=== PATIENT | female | born 1965 | race Caucasian/White ===

== ENCOUNTER → 2016-07-03 | Outpatient (CLI) | payer BC ==
--- NOTE | 2016-07-03 12:05 | MR ---
EXAMINATION TYPE: MR hip LT wo con DATE OF EXAM: 07/03/2016 11:41 AM COMPARISON: NONE HISTORY: Pain in left hip Standard multiplanar, multisequence MRI departmental protocol Multiplanar, multisequence images of the left hip were acquired. FINDINGS: There is a moderate degenerative narrowing at the left hip joint space. There is attenuation of the s ubarticular cartilage compatible with osteoarthritis. Superior labrum appears to be torn. Remaining l abrum is grossly intact. There is no evidence for avascular necrosis. No fracture or bony lesion is s een. No sizable joint effusion. No evidence for femoral acetabular impingement. Mild to moderate dege nerative narrowing is noted of the right hip joint space. Kwan balloon catheter seen within the urin celeste bladder. No soft tissue masses are present. IMPRESSION: Osteoarthritis of the left hip with suspected labral tear.
== END | disposition home or self-care (01) ==
LOC: RADMRIMAIN 10:12
PROVIDERS: ATTEND Family Medicine
DX: M16.12 Unilateral primary osteoarthritis, left hip (principal)

== ENCOUNTER → 2016-10-29 | Outpatient (CLI) | payer BC ==
--- NOTE | 2016-10-30 10:50 | MM ---
Reason for exam: screening (asymptomatic). Last mammogram was performed 4 years and 8 months ago. History: Patient is postmenopausal. Took hormonal contraceptives for 3 years beginning at age 23. Taking progesterone for 3 years. Physical Findings: A clinical breast exam by your physician is recommended on an annual basis and results should be correlated with mammographic findings. MG Screening Mammo w CAD Bilateral CC and MLO view(s) were taken. Prior study comparison: March 01, 2012, bilateral digital screening mammo w/CAD. There are scattered fibroglandular densities. No significant changes when compared with prior studies. ASSESSMENT: Benign, BI-RAD 2 RECOMMENDATION: Routine screening mammogram of both breasts in 1 year.
== END | disposition home or self-care (01) ==
LOC: RADMAMWWP 13:09
PROVIDERS: ATTEND Obstetrics & Gynecology
DX: Z12.31 Encounter for screening mammogram for malignant neoplasm of breast (principal)

== ENCOUNTER → 2017-02-23 | Outpatient (CLI) | payer BC ==
--- NOTE | 2017-02-23 11:39 | MR ---
EXAMINATION TYPE: MR knee LT wo con DATE OF EXAM: 02/23/2017 COMPARISON: NONE HISTORY: pain in lt knee TECHNIQUE: Multiplanar, multisequence imaging of the left knee is performed without IV contrast. FINDINGS: MEDIAL MENISCUS: There is signal within the posterior horn of the medial meniscus most typical of a a kareem of myxoid degeneration. No definite meniscal tear. LATERAL MENISCUS: Anterior and posterior horns are intact without tear. CRUCIATE LIGAMENTS: The anterior and posterior cruciate ligaments are intact and unremarkable. COLLATERAL LIGAMENTS: The medial collateral ligament and lateral collateral ligament complex are inta ct and unremarkable. EXTENSOR MECHANISM: Abnormal signal is noted within the patellar tendon compatible with patellar tend initis. Correlate clinically. EFFUSION: Small amount of fluid in the suprapatellar bursa. POPLITEAL CYST: No popliteal/barrientos cyst. TRICOMPARTMENT SPACES: Mild joint space narrowing with no erosive change. There is cartilage loss of the medial femoral articular cartilage compatible with chondromalacia. BONE MARROW SIGNAL: No focal abnormal marrow signal is appreciated. OTHER: There is a degree of muscular atrophy. IMPRESSION: 1. Stable signal within the posterior horn medial meniscus. Mucoid degeneration favored over subtle t ear. 2. Abnormal signal within the patellar tendon suggestive of patellar tendinitis. Intrasubstance tear not excluded. 3. Chondromalacia medial femoral articular cartilage.
== END | disposition home or self-care (01) ==
LOC: RADMRIMAIN 09:41
PROVIDERS: ATTEND Orthopaedic Surgery Sports Medicine
DX: S83.242A Other tear of medial meniscus, current injury, left knee, initial encounter (principal); M94.262 Chondromalacia, left knee

== ENCOUNTER → 2017-02-23 | Outpatient (CLI) | payer BC ==
--- NOTE | 2017-02-23 11:41 | MR ---
EXAMINATION TYPE: MR lumbar spine wo con DATE OF EXAM: 02/23/2017 COMPARISON: NONE HISTORY: low back pain TECHNIQUE: T1 and T2 axial and sagittal images of the lumbar spine are submitted. FINDINGS: There is no abnormal signal seen within the visualized spinal cord or paraspinal soft tissu es. Scoliosis of the spine noted. At L1-2 there is hypertrophic change of the facets with no disc herniation or canal stenosis. No fora meet encroachment. At L2-3 there is hypertrophic change of the facets but no disc herniation or canal stenosis. No jia inal encroachment. Vertebral body hemangioma of L2. At L3-4 there is moderate degenerative disc disease with facet arthropathy and ligamentum flavum hype rtrophy. Circumferential disc bulging greater paracentrally to the right noted. There is mild right-s ided foraminal encroachment. At L4-5 there is moderate degenerative disc disease with diffuse disc bulging and marked facet arthro ramiro with ligamentum flavum hypertrophy. Borderline canal stenosis with mild bilateral foraminal enc roachment greater on the right. At L5-S1 there is marked facet arthropathy but no disc herniation or canal stenosis. No foraminal enc roachment. IMPRESSION: 1. Scoliosis with multilevel degenerative disc disease. Disc bulging L3-4 and L4-5 with foraminal enc roachment as discussed above.
== END | disposition home or self-care (01) ==
LOC: RADMRIMAIN 09:35
PROVIDERS: ATTEND Family Medicine
DX: M51.26 Other intervertebral disc displacement, lumbar region (principal); M51.36 Other intervertebral disc degeneration, lumbar region; M41.9 Scoliosis, unspecified; M25.569 Pain in unspecified knee
CPT/HCPCS: 72148

== ENCOUNTER → 2018-01-04 | Outpatient (CLI) | payer MEDICARE ==
--- NOTE | 2018-01-04 15:37 | US ---
EXAMINATION TYPE: US kidneys/renal and bladder DATE OF EXAM: 01/04/2018 COMPARISON: CLINICAL HISTORY: N39.0 Urinary tract infection. Hx of recurrent UTI's, Suprapubic catheter, Scanned in Go Chair EXAM MEASUREMENTS: Right Kidney: 9.6 x 5.0 x 4.3 cm Left Kidney: 9.5 x 4.1 x 3.6 cm Right Kidney: No hydronephrosis or masses seen Left Kidney: No hydronephrosis or masses seen Bladder: Catheter seen Bilateral Jets seen: Not visualized due to catheter There is no evidence for hydronephrosis at this point in time. No nephrolithiasis is seen. No jl s are identified. The urinary bladder is anechoic. Bilateral ureteral jets are seen. IMPRESSION: No significant abnormality seen.
== END | disposition home or self-care (01) ==
LOC: RADUSWWP 14:57
PROVIDERS: ATTEND Urology
DX: N39.0 Urinary tract infection, site not specified (principal)
CPT/HCPCS: 76770

== ENCOUNTER → 2018-09-22 | Outpatient (CLI) | payer MEDICARE ==
--- NOTE | 2018-09-22 13:51 | MR ---
EXAMINATION TYPE: MR lumbar spine wo con DATE OF EXAM: 09/22/2018 COMPARISON: 02/23/2017 HISTORY: lumbar spondylosis TECHNIQUE: Multiplanar, multisequence images of the lumbar spine were acquired. FINDINGS: There is a levoscoliosis of the lumbar spine, slightly rotatory. There are Modic type II en dplate changes of L3 and L4 with T1/T2 hyperintense vertebral body hemangioma of L2. Modic type II en dplate changes are also seen of the anterior endplates at L4-L5. Conus medullaris appears to terminat e at L1-L2. Multilevel disc desiccation is seen. Multilevel Schmorl's nodes are also noted. L1-L2: Disc desiccation without spinal canal stenosis or neural foraminal narrowing. L2-L3: Slightly left eccentric broad-based disc bulge creating minimal left neural foraminal narrowin g. Right neural foramen and spinal canal are patent. L3-L4: Facet arthropathy and right eccentric broad-based disc bulge are seen creating mild right neur al foraminal narrowing. Left neural foramen and spinal canal are patent. Ligamentum flavum buckling i s also noted. L4-L5: There is facet arthropathy and ligamentum flavum buckling as well as a left eccentric broad-ba sed disc bulge creating moderate to severe left neural foraminal narrowing and mild right neural fora meet narrowing as well as mild spinal canal stenosis. L5-S1: Disc desiccation is present without spinal canal stenosis nor neural foraminal narrowing. IMPRESSION: 1. Mild spinal canal stenosis at L4-L5 and moderate to severe left neural foraminal narrowing with im pingement of the exiting L4 nerve root secondary to a left eccentric disc bulge, facet arthropathy an d ligamentum flavum buckling. 2. Degenerative disc disease throughout the remainder of the lumbar spine without focal herniation. M inimal left neural foraminal narrowing at L2-L3 and mild right neural foraminal narrowing at L4-L5 ar e seen as a result. 3. Levoscoliosis of the lumbar spine is minimally rotatory.
== END | disposition home or self-care (01) ==
LOC: RADMRIMAIN 12:30
PROVIDERS: ATTEND Neurological Surgery
DX: M99.73 Connective tissue and disc stenosis of intervertebral foramina of lumbar region (principal); M48.061 Spinal stenosis, lumbar region without neurogenic claudication; M48.07 Spinal stenosis, lumbosacral region; M51.86 Other intervertebral disc disorders, lumbar region; M51.36 Other intervertebral disc degeneration, lumbar region; M46.96 Unspecified inflammatory spondylopathy, lumbar region; M41.86 Other forms of scoliosis, lumbar region
CPT/HCPCS: 72148

== ENCOUNTER → 2018-10-15 | Outpatient (CLI) | payer MEDICARE ==
--- NOTE | 2018-10-19 11:14 | MM ---
Reason for exam: screening (asymptomatic). Last mammogram was performed 2 years ago. History: Patient is postmenopausal. Took hormonal contraceptives for 3 years beginning at age 23. Taking progesterone for 3 years. Physical Findings: A clinical breast exam by your physician is recommended on an annual basis and results should be correlated with mammographic findings. MG 3D Screening Mammo W/Cad Bilateral CC and MLO view(s) were taken. Prior study comparison: October 29, 2016, bilateral MG screening mammo w CAD. March 01, 2012, bilateral digital screening mammo w/CAD. There are scattered fibroglandular densities. Stable grouped calcifications anteiorly on the left, likely milk of calcium. No significant changes when compared with prior studies. ASSESSMENT: Benign, BI-RAD 2 RECOMMENDATION: Routine screening mammogram of both breasts in 1 year.
== END | disposition home or self-care (01) ==
LOC: RADMAMWWP 13:01
PROVIDERS: ATTEND Obstetrics & Gynecology
DX: Z12.31 Encounter for screening mammogram for malignant neoplasm of breast (principal)
CPT/HCPCS: 77063; 77067

== ENCOUNTER → 2020-05-29 | Outpatient (CLI) | payer MEDICARE ==
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
== END | disposition home or self-care (01) ==
LOC: RADUSWWP 16:07
PROVIDERS: ATTEND Family Medicine
DX: R80.9 Proteinuria, unspecified (principal)
CPT/HCPCS: 76770

== ENCOUNTER → 2020-07-20 | Outpatient (CLI) | payer MEDICARE ==
[2020-07-20 14:47] LABS: Creatinine,Urine Random 30.6 mg/dL; Protein/Creatinine Ratio,Urine 0.654
[2020-07-20 15:01] LABS: Amorphous Sediment,Urine Rare /hpf; Appearance,Urine Clear (Clear); Bacteria,Urine Occasional /hpf; Bilirubin,Urine Negative (Negative); Blood,Urine Negative (Negative); Color,Urine Yellow; Glucose,Urine (UA) Negative (Negative); Ketones,Urine Negative (Negative); Leukocyte Esterase,Urine Moderate (Negative); Mucus,Urine Rare /hpf; Nitrite,Urine Positive (Negative); Protein,Urine Negative (Negative); RBC,Urine <1 /hpf (0-5); Specific Gravity,Urine 1.009 (1.001-1.035); Urobilinogen,Urine <2.0 mg/dL (<2.0); WBC,Urine 12 /hpf (0-5)
== END | disposition home or self-care (01) ==
LOC: LABWHC1 13:46
PROVIDERS: ATTEND Internal Medicine Nephrology
DX: R80.9 Proteinuria, unspecified (principal); Z87.440 Personal history of urinary (tract) infections
CPT/HCPCS: 81001; 82570; 84156

== ENCOUNTER 2022-08-22 11:43 | Emergency (ER) | payer MEDICARE ==
[2022-08-22 11:52] VITALS: TEMP 98.1
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
[2022-08-22 13:10] LABS: Basophils % (A) 0 %; Eosinophils # (A) 0.2 k/uL (0-0.7); Eosinophils % (A) 3 %; HCT 41.2 % (34.0-46.0); Lymphocytes # (A) 1.9 k/uL (1.0-4.8); Lymphocytes % (A) 30 %; MCH 29.4 pg (25.0-35.0); MCV 86.5 fL (80.0-100.0); Mean Platelet Volume 7.7; Monocytes # (A) 0.3 k/uL (0-1.0); Monocytes % (A) 4 %; Neutrophils # (A) 3.9 k/uL (1.3-7.7); Neutrophils % (A) 60 %; Platelet Count 313 k/uL (150-450); RBC 4.76 m/uL (3.80-5.40); RDW 13.6 % (11.5-15.5); WBC 6.4 k/uL (3.8-10.6)
[2022-08-22 13:19] LABS: Partial Thromboplastin Time 23.4 sec (22.0-30.0); Prothrombin Time 10.2 sec (9.0-12.0)
[2022-08-22 13:38] LABS: AST 30 U/L (14-36); African American GFR (CKD) >90 (>60 ml/min/1.73 sqM); Albumin 3.9 g/dL (3.5-5.0); Anion Gap 3 mmol/L; Blood Urea Nitrogen 11 mg/dL (7-17); Calcium 9.2 mg/dL (8.4-10.2); Carbon Dioxide 32 mmol/L (22-30); Chloride 104 mmol/L (98-107); Glucose 96 mg/dL (74-99); Non-African American GFR(CKD) >90 (>60 ml/min/1.73 sqM); Sodium 139 mmol/L (137-145); Total Bilirubin 0.5 mg/dL (0.2-1.3); Total Protein 7.2 g/dL (6.3-8.2)
[2022-08-22 13:43] LABS: ALT 21 U/L (4-34); Alkaline Phosphatase 70 U/L (38-126); Potassium 4.7 mmol/L (3.5-5.1)
--- NOTE | 2022-08-22 13:45 | US ---
EXAMINATION TYPE: US venous doppler duplex LE BI DATE OF EXAM: 08/22/2022 1:30 PM COMPARISON: NONE CLINICAL HISTORY: bilateral leg swelling. Edema bilateral legs, worse on the left SIDE PERFORMED: bilateral TECHNIQUE: The lower extremity deep venous system is examined utilizing real time linear array sonog vickey with graded compression, doppler sonography and color-flow sonography. VESSELS IMAGED: Common Femoral Vein Deep Femoral Vein Greater Saphenous Vein * Femoral Vein Popliteal Vein Small Saphenous Vein * Proximal Calf Veins (* superficial vessels) *technical limitations, limited mobility Grayscale, color doppler, spectral doppler imaging performed of the deep veins of the lower extremiti es. There is normal flow, compressibility, vascular waveforms. Right Leg: No evidence of DVT as visualized Left Leg: no evidence of DVT as visualized IMPRESSION: No ultrasound evidence for deep venous thrombosis of the bilateral lower extremities.
[2022-08-22 13:51] LABS: T4, Free (Free Thyroxine) 1.76 ng/dL (0.78-2.19)
[2022-08-22 14:22] VITALS: RESP 18
--- NOTE | 2022-08-22 14:49 | XR ---
EXAMINATION TYPE: XR chest 2V DATE OF EXAM: 08/22/2022 2:43 PM COMPARISON: None TECHNIQUE: XR chest 2V Frontal and lateral views of the chest. CLINICAL INDICATION:Female, 57 years old with history of orthopnea; FINDINGS: Lungs/Pleura: There is no evidence of pleural effusion, focal consolidation, or pneumothorax. Pulmonary vascularity: Unremarkable. Heart/mediastinum: Cardiomediastinal silhouette is unremarkable. Musculoskeletal: No acute osseous pathology. Postsurgical changes of thoracic spine hardware appears intact. IMPRESSION: 1. No acute cardiopulmonary disease/process. 2. Post surgical changes to the thoracic spine with hardware intact.
[2022-08-22 15:22] VITALS: BP 132/70; PULSE 86
== END 2022-08-22 15:22 | disposition home or self-care (01) ==
LOC: SUPCPDRO 11:43 → EC 11:43
DX: R06.00 Dyspnea, unspecified (principal); Z88.0 Allergy status to penicillin; Z88.6 Allergy status to analgesic agent; Z91.048 Other nonmedicinal substance allergy status
CPT/HCPCS: 36415; 71046; 80053; 83735; 83880; 84439; 84443; 84481; 84484; 85025; 85610; 85730; 93005; 93970; 99284

== ENCOUNTER 2023-03-02 17:41 | Observation (INO) | payer MEDICARE ==
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
[2023-03-02] MEDS: SODIUM CHLORIDE 0.9% 1,000 ML IV SCH (19:28)
[2023-03-02] MEDS: CEFEPIME 2 GM in SODIUM CHLORIDE 0.9% 100 ML IVPB SCH (19:29)
[2023-03-02 19:32] LABS: Basophils % (A) 0 %; Eosinophils # (A) 0.2 k/uL (0-0.7); Eosinophils % (A) 3 %; HCT 43.3 % (34.0-46.0); Lymphocytes # (A) 3.2 k/uL (1.0-4.8); Lymphocytes % (A) 45 %; MCH 29.1 pg (25.0-35.0); MCHC 32.4 g/dL (31.0-37.0); MCV 89.9 fL (80.0-100.0); Mean Platelet Volume 8.5; Monocytes # (A) 0.3 k/uL (0-1.0); Monocytes % (A) 4 %; Neutrophils # (A) 3.1 k/uL (1.3-7.7); Neutrophils % (A) 45 %; Platelet Count 287 k/uL (150-450); RBC 4.81 m/uL (3.80-5.40); RDW 13.3 % (11.5-15.5); WBC 6.9 k/uL (3.8-10.6)
[2023-03-02 19:34] LABS: ALT 25 U/L (4-34); AST 27 U/L (14-36); African American GFR (CKD) >90 (>60 ml/min/1.73 sqM); Albumin 4.1 g/dL (3.5-5.0); Alkaline Phosphatase 64 U/L (38-126); Anion Gap 14 mmol/L; Blood Urea Nitrogen 12 mg/dL (7-17); Calcium 9.4 mg/dL (8.4-10.2); Carbon Dioxide 26 mmol/L (22-30); Chloride 101 mmol/L (98-107); Glucose 180 mg/dL (74-99); Non-African American GFR(CKD) >90 (>60 ml/min/1.73 sqM); Potassium 3.6 mmol/L (3.5-5.1); Sodium 141 mmol/L (137-145); Total Bilirubin 0.2 mg/dL (0.2-1.3); Total Protein 7.2 g/dL (6.3-8.2)
[2023-03-02] MEDS ORDERED: NALOXONE 0.4 MG/ML 1 ML VIAL IV PRN (19:41)
[2023-03-02] MEDS ORDERED: ACETAMINOPHEN TAB 500 MG TAB PO STA (19:41)
[2023-03-02] MEDS ORDERED: ACETAMINOPHEN TAB 325 MG TAB PO PRN (19:41)
[2023-03-02] MEDS ORDERED: SODIUM CHLORIDE 0.9% 1,000 ML IV ONE (20:18)
[2023-03-02] MEDS ORDERED: MORPHINE SULFATE 4 MG/ML SYRINGE IVP PRN (22:19)
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
[2023-03-02 22:46] LABS: Amorphous Sediment,Urine Rare /hpf; Bacteria,Urine Occasional /hpf; Budding Yeast,Urine Occasional /hpf; Calcium Oxalate Crystals,Urine Occasional /hpf; Hyaline Casts,Urine 4 /lpf (0-2); RBC,Urine 3 /hpf (0-5); Squamous Epithelial Cell,Urine 1 /hpf (0-4); WBC,Urine 2 /hpf (0-5)
[2023-03-02 23:16] LABS: Appearance,Urine Clear (Clear); Color,Urine Colorless; Specific Gravity,Urine 1.003 (1.001-1.035)
[2023-03-02 23:17] LABS: Bilirubin,Urine Negative (Negative); Blood,Urine Trace (Negative); Glucose,Urine (UA) Negative (Negative); Ketones,Urine Negative (Negative); Leukocyte Esterase,Urine Negative (Negative); Nitrite,Urine Negative (Negative); PH, Urine 6.5 (5.0-8.0); Protein,Urine Negative (Negative); Urobilinogen,Urine 0.2 mg/dL (<2.0)
[2023-03-02 23:56] LABS: INR 0.9 (<1.2); Prothrombin Time 10.2 sec (10.0-12.5)
[2023-03-03 00:03] LABS: Partial Thromboplastin Time 20.9 sec (22.0-30.0)
[2023-03-03] MEDS: CEFEPIME 2 GM in SODIUM CHLORIDE 0.9% 100 ML IVPB SCH ×3 (01:50→15:39)
[2023-03-03] MEDS ORDERED: SUMAtriptan succinate 50 MG TAB PO PRN (04:11)
[2023-03-03] MEDS: PREGABALIN 75 MG CAP PO SCH ×3 (05:07→15:39)
[2023-03-03] MEDS: oxyCODONE-APAP 10-325MG 1 EACH TAB PO PRN ×3 (05:07→15:44)
[2023-03-03] MEDS: BACLOFEN 10 MG TAB PO SCH ×3 (05:07→15:38)
[2023-03-03] MEDS ORDERED: LIDOCAINE 1% INJ 10MG/ML (20 ML MDV) SQ ONE (07:57)
--- NOTE | 2023-03-03 08:11 | P.PCN ---
Date of Procedure: 03/03/23 Preoperative Diagnosis: Urinary tract infection need for IV antibiotics Postoperative Diagnosis: Same Procedure(s) Performed: Ultrasound-guided left basilic vein single-lumen PICC line placement Anesthesia: local Pathology: none sent Condition: stable Disposition: floor Indications for Procedure: 57-year-old female with history of urinary tract infection was seen at a previous hospital and is in need of IV antibiotics which was unable to be performed at that hospital due to inability to place a PICC line. She presents today for PICC line placement. Description of Procedure: After written and informed consent was obtained the patient and all risks, benefits and competitions were described the patient was brought to the Program Dir and laid in a supine position with the left arm outstretched on an armboard. The area of the left arm was prepped and draped in usual sterile fashion. Timeout was performed in normal fashion. Utilizing ultrasound the basilic vein was visualized and shown to be compressible without any visible thrombus. Under ultrasound guidance the basilic vein was then cannulated with a micropuncture needle and wire was placed under direct visualization of fluoroscopy. Introducer sheath was then placed. The catheter was measured and cut to the appropriate length which was 45 cm. The catheter was then guided through the breakaway sheath and the sheath was removed with good positioning was visualized under fluoroscopy. The catheter was pulled and flushed easily. It was then secured in place in normal fashion. Patient tolerated the procedure well was sent back to his room for recovery.
[2023-03-03 08:37] VITALS: TEMP 98.2
[2023-03-03] MEDS ORDERED: ENOXAPARIN 40 MG/0.4 ML SYRINGE SQ SCH (09:00)
[2023-03-03] MEDS: SODIUM CHLORIDE 0.9% 1,000 ML IV SCH (09:10)
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
[2023-03-03] MEDS ORDERED: LEVOTHYROXINE 125 MCG TAB PO SCH (12:00)
[2023-03-03] MEDS: BARIUM SULFATE 450 ML ORAL.SUSP BOTTLE PO PRN ×2 (12:37→15:32)
--- NOTE | 2023-03-03 17:15 | CT ---
EXAMINATION TYPE: CT abdomen pelvis wo con CT DLP: 506.6 mGycm, Automated exposure control for dose reduction was used. DATE OF EXAM: 03/03/2023 4:44 PM COMPARISON: 03/15/2023. CLINICAL INDICATION:Female, 57 years old with history of abd pain; abdominal pain, UTI TECHNIQUE: Axial CT of the ;CT abdomen pelvis wo con;Sagittal and coronal reformats were created on a separate workstation. Contrast used: mL of , (none if empty) Oral contrast used: with Oral Contrast (none if empty) FINDINGS: LOWER CHEST: Unremarkable ABDOMEN LIVER: Unremarkable GALLBLADDER AND BILE DUCTS: Unremarkable. PANCREAS: Unremarkable. SPLEEN: Unremarkable. ADRENAL GLANDS: Unremarkable. KIDNEYS AND URETERS: No evidence of hydronephrosis or renal calculus. The ureters are unremarkable. PELVIS BLADDER: Nondistended with suprapubic Kwan catheter in place. No bladder calculi. REPRODUCTIVE: Unremarkable. ABDOMEN & PELVIS STOMACH AND BOWEL: No evidence of bowel obstruction. PERITONEUM/RETROPERITONEUM: No evidence of pneumoperitoneum or free fluid. VASCULATURE: Mild atherosclerotic calcifications are present throughout the abdominal aorta and its b ranches. No evidence of aortic aneurysm. MUSCULOSKELETAL: No acute osseous abnormalities. Mild disc degeneration changes are present throughou t the thoracolumbar spine. Scoliosis changes of the spine. Schmorl's nodes osteophytes and disc space narrowing are present. LYMPH NODES: No gross evidence for lymphadenopathy. SOFT TISSUE/ABDOMINAL WALL: Fat-containing buccal hernia. IMPRESSION: Suprapubic Kwan catheter in place. Urinary bladder is nondistended. No evidence for obstructive urop athy. No renal calculi. No bladder calculi.
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
[2023-03-03] MEDS ORDERED: NORTRIPTYLINE 25 MG CAP PO SCH (20:00)
[2023-03-03 20:08] VITALS: BP 123/63; PULSE 67; RESP 15
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
== END 2023-03-03 21:08 | disposition home or self-care (01) ==
LOC: EC 17:41 → 6NMEDSUR 19:41 → 4SSUR 21:03
PROVIDERS: ADMIT Internal Medicine; ATTEND Internal Medicine
DX: A41.9 Sepsis, unspecified organism (principal); R65.20 Severe sepsis without septic shock; N39.0 Urinary tract infection, site not specified; E03.9 Hypothyroidism, unspecified; N17.9 Acute kidney failure, unspecified; G43.909 Migraine, unspecified, not intractable, without status migrainosus; G82.20 Paraplegia, unspecified; Z88.0 Allergy status to penicillin; Z79.890 Hormone replacement therapy; B96.5 Pseudomonas (aeruginosa) (mallei) (pseudomallei) as the cause of diseases classified elsewhere; Z16.23 Resistance to quinolones and fluoroquinolones; N32.89 Other specified disorders of bladder
CPT/HCPCS: 96366 ×2; 96372; 96361; 96365; 96367; 99285; 36415; 36573; 80053; 83605; 85025; 85610; 85730; 81001; 87040; 87086; 74176; G0378 ×2; C1751; C1769; J2270; J2001; J1650; J0692 ×2

== ENCOUNTER 2024-11-26 19:35 | Inpatient (IN) | payer MEDICARE ==
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
[2024-11-26 20:16] LABS: Basophils # (A) 0.06 10*3/uL (0.00-0.10); Basophils % (A) 1.2 %; Eosinophils # (A) 0.10 10*3/uL (0.04-0.35); Eosinophils % (A) 2.0 %; HCT 38.3 % (37.2-46.3); HGB 13.0 g/dL (12.0-15.0); Lymphocytes # (A) 1.98 10*3/uL (0.90-5.00); Lymphocytes % (A) 39.7 %; MCH 29.3 pg (27.0-32.0); MCHC 33.9 g/dL (32.0-37.0); MCV 86.5 fL (80.0-97.0); Monocytes # (A) 0.79 10*3/uL (0.20-1.00); Monocytes % (A) 15.8 %; Neutrophils # (A) 2.05 10*3/uL (1.80-7.70); Neutrophils % (A) 41.1 %; Platelet Count 275 10*3/uL (140-440); RBC 4.43 10*6/uL (4.10-5.20); RDW 13.8 % (11.5-14.5); WBC 4.99 10*3/uL (4.50-10.00)
[2024-11-26 20:26] LABS: INR 1.0 (<1.2); Partial Thromboplastin Time 22.5 sec (22.0-30.0); Prothrombin Time 10.9 sec (10.0-12.5)
[2024-11-26 20:28] LABS: ALT 20 U/L (4-34); AST 26 U/L (14-36); African American GFR (CKD) >90 (>60 ml/min/1.73 sqM); Albumin 2.9 g/dL (3.5-5.0); Alkaline Phosphatase 57 U/L (38-126); Anion Gap 9 mmol/L; Blood Urea Nitrogen 4 mg/dL (7-17); Calcium 8.8 mg/dL (8.4-10.2); Carbon Dioxide 27 mmol/L (22-30); Chloride 98 mmol/L (98-107); Glucose 94 mg/dL (74-99); Magnesium 1.9 mg/dL (1.6-2.3); Non-African American GFR(CKD) >90 (>60 ml/min/1.73 sqM); Potassium 3.4 mmol/L (3.5-5.1); Sodium 134 mmol/L (137-145); Total Protein 5.5 g/dL (6.3-8.2)
[2024-11-26] MEDS: SODIUM CHLORIDE 0.9% 1,000 ML IV ONE (20:30)
[2024-11-26] MEDS: IBUPROFEN 600 MG TAB PO STA (20:31)
[2024-11-26] MEDS: ACETAMINOPHEN TAB 500 MG TAB PO STA (20:32)
[2024-11-26 20:36] LABS: NT-Pro-B-Type Natriuretic Pept 69 pg/mL
[2024-11-26 21:34] LABS: Amorphous Sediment,Urine Rare /hpf; Bacteria,Urine Occasional /hpf; Bilirubin,Urine Negative (Negative); Blood,Urine Small (Negative); Color,Urine Colorless; Glucose,Urine (UA) Negative (Negative); Ketones,Urine Negative (Negative); Leukocyte Esterase,Urine Moderate (Negative); Mucus,Urine Rare /hpf; Nitrite,Urine Positive (Negative); PH, Urine 6.5 (5.0-8.0); Protein,Urine Negative (Negative); RBC,Urine 4 /hpf (0-5); Specific Gravity,Urine 1.006 (1.001-1.035); Urobilinogen,Urine <2.0 mg/dL (<2.0); WBC,Urine 12 /hpf (0-5)
[2024-11-26] MEDS: KETOROLAC 15 MG/ML 1 ML VIAL IVP STA (22:10)
[2024-11-26] MEDS: ONDANSETRON 4 MG/2 ML VIAL IVP STA (22:11)
[2024-11-26] MEDS ORDERED: MORPHINE SULFATE 4 MG/ML SYRINGE IV PRN (22:51)
[2024-11-26] MEDS ORDERED: NALOXONE 0.4 MG/ML 1 ML VIAL IV PRN (22:51)
[2024-11-26] MEDS: diphenhydrAMINE 50 MG/ML 1 ML VIAL IVP STA (23:23)
[2024-11-26] MEDS: FAMOTIDINE 20 MG/2 ML VIAL IV STA (23:24)
[2024-11-26] MEDS: methylPREDNISolone SOD SUCCI 125 MG/2 ML VIAL IV STA (23:24)
[2024-11-26] MEDS: DIPHENOX-ATROP 2.5-0.025 MG 1 EACH TAB PO STA (23:25)
[2024-11-26] MEDS: SODIUM CHLORIDE 0.9% 1,000 ML IV SCH (23:26)
[2024-11-27 01:33] LABS: Glucose,Whole Blood 92 mg/dL (70-110)
--- NOTE | 2024-11-27 02:07 | CT ---
EXAM: CT Abdomen and Pelvis With Intravenous Contrast CLINICAL HISTORY: Pain with urination, nausea, vomiting and diarrhea and fever x1 week. TECHNIQUE: Axial computed tomography images of the abdomen and pelvis with intravenous contrast. CTDI is 17.5 mGy and DLP is 818.7 mGy-cm. This CT exam was performed using one or more of the following dose reduction techniques: automated exposure control, adjustment of the mA and/or kV according to patient size, and/or use of iterative reconstruction technique. COMPARISON: CTA abdomen and pelvis without IV contrast 03/03/2023 FINDINGS: Lung bases: Unremarkable. No mass. No consolidation. ABDOMEN: Liver: Unremarkable. No mass. Gallbladder and bile ducts: Unremarkable. No calcified stones. No ductal dilation. Pancreas: Unremarkable. No mass. No ductal dilation. Spleen: Unremarkable. No splenomegaly. Adrenals: Unremarkable. No mass. Kidneys and ureters: The kidneys demonstrate normal enhancement. No pyelonephritis. No hydronephrosis or obstructive ureteral stones. Delayed phase imaging demonstrates normal excreted contrast in the renal collecting systems and proximal ureters. Stomach and bowel: No evidence for focal high-grade bowel obstruction. There is diffuse abnormal mucosal thickening with mild pericolonic fat stranding throughout the colon. Mildly prominent fluid noted in the right colon. PELVIS: Appendix: The appendix is not clearly delineated on this examination. Bladder: A suprapubic catheter is noted. The bladder is decompressed. No bladder stones. Reproductive: Unremarkable as visualized. ABDOMEN and PELVIS: Intraperitoneal space: Unremarkable. No free air. No significant fluid collection. Bones/joints: Multilevel degenerative changes involving the lower lumbar spine. No acute osseous abnormality. No dislocation. Soft tissues: Unremarkable. Vasculature: Atherosclerotic calcification of the normal-caliber aorta. No dissection or aneurysm. Lymph nodes: Unremarkable. No enlarged lymph nodes. IMPRESSION: 1. No evidence for focal high-grade bowel obstruction. There is diffuse abnormal mucosal thickening with mild pericolonic fat stranding throughout the colon. Mildly prominent fluid noted in the right colon. Findings are most consistent with inflammatory or infectious colitis. No free intraperitoneal fluid or pneumoperitoneum. 2. The kidneys demonstrate normal enhancement. No pyelonephritis. No hydronephrosis or obstructive ureteral stones. Delayed phase imaging demonstrates normal excreted contrast in the renal collecting systems and proximal ureters. Incidental suprapubic catheter with decompression of the bladder.
[2024-11-27] MEDS: SODIUM CHLORIDE 0.9% 1,000 ML IV ONE ×2 (02:32→03:47)
[2024-11-27 03:58] LABS: Basophils # (A) 0.04 10*3/uL (0.00-0.10); Basophils % (A) 1.5 %; Eosinophils # (A) 0.02 10*3/uL (0.04-0.35); Eosinophils % (A) 0.7 %; HCT 35.3 % (37.2-46.3); HGB 11.7 g/dL (12.0-15.0); Lymphocytes # (A) 1.02 10*3/uL (0.90-5.00); Lymphocytes % (A) 37.5 %; MCH 29.0 pg (27.0-32.0); MCHC 33.1 g/dL (32.0-37.0); MCV 87.6 fL (80.0-97.0); Monocytes # (A) 0.20 10*3/uL (0.20-1.00); Monocytes % (A) 7.4 %; Neutrophils # (A) 1.43 10*3/uL (1.80-7.70); Neutrophils % (A) 52.5 %; Platelet Count 246 10*3/uL (140-440); RBC 4.03 10*6/uL (4.10-5.20); RDW 13.9 % (11.5-14.5); WBC 2.72 10*3/uL (4.50-10.00)
[2024-11-27 04:07] LABS: ALT 17 U/L (4-34); AST 19 U/L (14-36); African American GFR (CKD) >90 (>60 ml/min/1.73 sqM); Albumin 2.5 g/dL (3.5-5.0); Alkaline Phosphatase 49 U/L (38-126); Anion Gap 9 mmol/L; Blood Urea Nitrogen 4 mg/dL (7-17); Calcium 7.6 mg/dL (8.4-10.2); Carbon Dioxide 21 mmol/L (22-30); Chloride 107 mmol/L (98-107); Glucose 100 mg/dL (74-99); Magnesium 1.7 mg/dL (1.6-2.3); Non-African American GFR(CKD) >90 (>60 ml/min/1.73 sqM); Potassium 3.3 mmol/L (3.5-5.1); Sodium 137 mmol/L (137-145); Total Protein 4.8 g/dL (6.3-8.2)
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
[2024-11-27] MEDS: ENOXAPARIN 40 MG/0.4 ML SYRINGE SQ SCH (08:06)
[2024-11-27] MEDS: metroNIDAZOLE-NS PMX 500 MG in SALINE 1 100ML.BAG IVPB SCH (08:06)
[2024-11-27] MEDS: PANTOPRAZOLE 40 MG/10 ML VIAL IV SCH (08:06)
[2024-11-27] MEDS: LACTOBACILLUS ACIDOPHILUS/PECT 1 EACH CAPSULE PO SCH (08:06)
[2024-11-27] MEDS: oxyCODONE-APAP 10-325MG 1 EACH TAB PO PRN (09:11)
[2024-11-27] MEDS: PREGABALIN 75 MG CAP PO SCH (10:29)
[2024-11-27] MEDS: LEVOTHYROXINE 125 MCG TAB PO SCH (11:42)
[2024-11-27] MEDS: POTASSIUM CHLORIDE ER 20 MEQ TAB.ER PO STA (17:56)
[2024-11-27] MEDS: BACLOFEN 10 MG TAB PO SCH (17:59)
[2024-11-27] MEDS: ONDANSETRON 4 MG/2 ML VIAL IVP PRN (20:21)
[2024-11-27] MEDS: NORTRIPTYLINE 10 MG CAP PO SCH (20:53)
[2024-11-28] MEDS: ACETAMINOPHEN TAB 325 MG TAB PO PRN (03:15)
[2024-11-28 06:30] LABS: HCT 37.2 % (37.2-46.3); HGB 12.1 g/dL (12.0-15.0); MCH 28.9 pg (27.0-32.0); MCHC 32.5 g/dL (32.0-37.0); MCV 88.8 fL (80.0-97.0); Platelet Count 370 10*3/uL (140-440); RBC 4.19 10*6/uL (4.10-5.20); RDW 14.5 % (11.5-14.5); WBC 5.33 10*3/uL (4.50-10.00)
[2024-11-28 06:52] LABS: Lymphocytes # (M) 2.45 k/uL (1.0-4.8); Monocytes # (M) 0.59 k/uL (0-1.0); Neutrophils # (M) 2.29 k/uL (1.3-7.7); Neutrophils % (M) 33 %; Total Cells Counted 100
[2024-11-28 07:00] LABS: African American GFR (CKD) >90 (>60 ml/min/1.73 sqM); Anion Gap 6 mmol/L; Blood Urea Nitrogen 5 mg/dL (7-17); Calcium 8.4 mg/dL (8.4-10.2); Carbon Dioxide 24 mmol/L (22-30); Chloride 109 mmol/L (98-107); Glucose 95 mg/dL (74-99); Magnesium 1.8 mg/dL (1.6-2.3); Non-African American GFR(CKD) >90 (>60 ml/min/1.73 sqM); Potassium 4.1 mmol/L (3.5-5.1); Sodium 139 mmol/L (137-145)
[2024-11-28] MEDS: ATORVASTATIN 10 MG TAB PO SCH (08:39)
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
[2024-11-29 06:41] LABS: Basophils # (A) 0.02 10*3/uL (0.00-0.10); Basophils % (A) 0.3 %; Eosinophils # (A) 0.19 10*3/uL (0.04-0.35); Eosinophils % (A) 3.1 %; HCT 40.2 % (37.2-46.3); HGB 12.9 g/dL (12.0-15.0); Lymphocytes # (A) 3.60 10*3/uL (0.90-5.00); Lymphocytes % (A) 58.2 %; MCH 29.3 pg (27.0-32.0); MCHC 32.1 g/dL (32.0-37.0); MCV 91.2 fL (80.0-97.0); Monocytes # (A) 0.44 10*3/uL (0.20-1.00); Monocytes % (A) 7.1 %; Neutrophils # (A) 1.90 10*3/uL (1.80-7.70); Neutrophils % (A) 30.7 %; Platelet Count 397 10*3/uL (140-440); RBC 4.41 10*6/uL (4.10-5.20); RDW 14.9 % (11.5-14.5); WBC 6.19 10*3/uL (4.50-10.00)
[2024-11-29 07:01] LABS: African American GFR (CKD) >90 (>60 ml/min/1.73 sqM); Anion Gap 7 mmol/L; Blood Urea Nitrogen 4 mg/dL (7-17); Calcium 8.6 mg/dL (8.4-10.2); Carbon Dioxide 26 mmol/L (22-30); Chloride 107 mmol/L (98-107); Glucose 82 mg/dL (74-99); Magnesium 1.8 mg/dL (1.6-2.3); Non-African American GFR(CKD) >90 (>60 ml/min/1.73 sqM); Potassium 4.0 mmol/L (3.5-5.1); Sodium 140 mmol/L (137-145)
[2024-11-29] MEDS ORDERED: BISMUTH SUBSALICYLATE 4,192 MG/240 ML BOTTLE PO PRN (14:57)
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
[2024-11-29] MEDS: CEFEPIME 2 GM in SODIUM CHLORIDE 0.9% 100 ML IVPB SCH (19:12)
[2024-11-30 07:16] LABS: Basophils # (A) 0.03 10*3/uL (0.00-0.10); Basophils % (A) 0.5 %; Eosinophils # (A) 0.23 10*3/uL (0.04-0.35); Eosinophils % (A) 3.7 %; HCT 38.1 % (37.2-46.3); HGB 11.9 g/dL (12.0-15.0); Lymphocytes # (A) 3.31 10*3/uL (0.90-5.00); Lymphocytes % (A) 52.7 %; MCH 28.1 pg (27.0-32.0); MCHC 31.2 g/dL (32.0-37.0); MCV 90.1 fL (80.0-97.0); Monocytes # (A) 0.34 10*3/uL (0.20-1.00); Monocytes % (A) 5.4 %; Neutrophils # (A) 2.33 10*3/uL (1.80-7.70); Neutrophils % (A) 37.1 %; Platelet Count 385 10*3/uL (140-440); RBC 4.23 10*6/uL (4.10-5.20); RDW 15.3 % (11.5-14.5); WBC 6.28 10*3/uL (4.50-10.00)
[2024-11-30 07:31] LABS: African American GFR (CKD) >90 (>60 ml/min/1.73 sqM); Anion Gap 4 mmol/L; Blood Urea Nitrogen 7 mg/dL (7-17); Calcium 8.1 mg/dL (8.4-10.2); Carbon Dioxide 28 mmol/L (22-30); Chloride 106 mmol/L (98-107); Glucose 119 mg/dL (74-99); Magnesium 1.7 mg/dL (1.6-2.3); Non-African American GFR(CKD) >90 (>60 ml/min/1.73 sqM); Potassium 3.9 mmol/L (3.5-5.1); Sodium 138 mmol/L (137-145)
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
[2024-11-30] MEDS: metroNIDAZOLE-NS PMX 500 MG in SALINE 1 100ML.BAG IVPB SCH (20:44)
[2024-11-30] MEDS: CEFEPIME 2 GM in SODIUM CHLORIDE 0.9% 100 ML IVPB SCH (20:46)
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
[2024-12-01 06:05] LABS: Basophils # (A) 0.04 10*3/uL (0.00-0.10); Basophils % (A) 0.6 %; Eosinophils # (A) 0.26 10*3/uL (0.04-0.35); Eosinophils % (A) 3.7 %; HCT 36.4 % (37.2-46.3); HGB 11.8 g/dL (12.0-15.0); Lymphocytes # (A) 3.26 10*3/uL (0.90-5.00); Lymphocytes % (A) 45.9 %; MCH 28.9 pg (27.0-32.0); MCHC 32.4 g/dL (32.0-37.0); MCV 89.2 fL (80.0-97.0); Monocytes # (A) 0.45 10*3/uL (0.20-1.00); Monocytes % (A) 6.3 %; Neutrophils # (A) 3.04 10*3/uL (1.80-7.70); Neutrophils % (A) 42.7 %; Platelet Count 418 10*3/uL (140-440); RBC 4.08 10*6/uL (4.10-5.20); RDW 15.0 % (11.5-14.5); WBC 7.11 10*3/uL (4.50-10.00)
[2024-12-01 06:41] LABS: African American GFR (CKD) >90 (>60 ml/min/1.73 sqM); Anion Gap 2 mmol/L; Blood Urea Nitrogen 7 mg/dL (7-17); Calcium 8.1 mg/dL (8.4-10.2); Carbon Dioxide 32 mmol/L (22-30); Chloride 105 mmol/L (98-107); Glucose 90 mg/dL (74-99); Magnesium 1.8 mg/dL (1.6-2.3); Non-African American GFR(CKD) >90 (>60 ml/min/1.73 sqM); Potassium 4.2 mmol/L (3.5-5.1); Sodium 139 mmol/L (137-145)
[2024-12-01 11:38] VITALS: RESP 16
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
[2024-12-01 15:22] VITALS: BP 123/64; PULSE 68; TEMP 98.2
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
== END 2024-12-01 16:47 | disposition home or self-care (01) | DRG 699 ==
LOC: EC 19:35 → 6NMEDSUR 22:51 → 3SCARD 11-27 04:10 → OBSVTOIN 11-28 12:03
PROVIDERS: ADMIT Internal Medicine; ATTEND Internal Medicine
PROC: 05HC33Z Insertion of Infusion Device into Left Basilic Vein, Percutaneous Approach (ICD-10-PCS; 2024-11-30 12:15)
PROC: 05H933Z Insertion of Infusion Device into Right Brachial Vein, Percutaneous Approach (ICD-10-PCS; principal; 2024-12-01 07:30)
DX: T83.518A Infection and inflammatory reaction due to other urinary catheter, initial encounter (principal); A09 Infectious gastroenteritis and colitis, unspecified; B96.5 Pseudomonas (aeruginosa) (mallei) (pseudomallei) as the cause of diseases classified elsewhere; G82.20 Paraplegia, unspecified; E03.9 Hypothyroidism, unspecified; N39.0 Urinary tract infection, site not specified; Z16.23 Resistance to quinolones and fluoroquinolones; I95.9 Hypotension, unspecified; E86.0 Dehydration; Z99.3 Dependence on wheelchair; Z88.0 Allergy status to penicillin; Z91.041 Radiographic dye allergy status; Z79.890 Hormone replacement therapy; Z79.899 Other long term (current) drug therapy; Z87.440 Personal history of urinary (tract) infections; Z88.1 Allergy status to other antibiotic agents; Y84.6 Urinary catheterization as the cause of abnormal reaction of the patient, or of later complication, without mention of misadventure at the time of the procedure; Y73.1 Therapeutic (nonsurgical) and rehabilitative gastroenterology and urology devices associated with adverse incidents
CPT/HCPCS: 36410; 36415; 74177; 76937; 80048; 80053; 81001; 82330; 83605; 83735; 83880; 84100; 84484; 85025; 85610; 85730; 87077; 87086; 87186; 87324; 93005; 96361; 96365; 96366; 96375; 99285